=== PATIENT | female | born 1940 | race Caucasian/White ===

== ENCOUNTER → 2017-10-27 09:14 | Outpatient (CLI) | payer MEDICARE, OTHER, SELFPAY ==
[2017-10-27 12:09] LABS: Absolute Lymphocyte Count 1.78 X10^3/ul (0.83-4.51); Absolute Neutrophil Count 2.6 X10^3/uL (2.0-7.7); Basophil# 0.03 X10^3/uL; Basophil% 0.6 % (0-1); Eosinophil# 0.13 X10^3/uL; Eosinophils% 2.5 % (0-5); Hematocrit 36.7 % (37-47); Hemoglobin 11.7 g/dl (12.0-15.0); Lymphocyte # 1.78 X10^3/ul (4.0); Lymphocyte % 33.8 % (19-41); Mean Corp Hgb Conc 31.9 g/gl (32-36); Mean Corpuscular Hgb 29.4 pg (27.0-32.0); Mean Corpuscular Volume 92.2 fL (81-99); Mean Platelet Vol. 10.1 fl (6.2-12.0); Monocyte# 0.76 X10^3/uL; Monocyte% 14.4 % (0-10); Neutrophil # 2.55 X10^3/uL (2.7-7.7); Neutrophil % 48.5 % (47-70); Platelet Count 249 K/mm3 (150-450); RBC Distribution Width SD 43.2 fl (35.1-43.9); Red Blood Count 3.98 M/mm3 (4.2-5.4); White Blood Count 5.3 K/mm3 (4.4-11.0)
[2017-10-27 12:15] LABS: POSITIVE COUNT NO; POSITIVE DIFFERENTIAL NO; POSITIVE MORPHOLOGY NO
[2017-10-27 12:35] LABS: AST(SGOT) 17 U/L (15-37); Alanine Aminotransfer ALT/SGPT 28 U/L (13-56); Albumin, Serum 3.7 g/dL (3.2-5.0); Alkaline Phosphatase 69 U/L (45-117); Anion Gap 8 (5-15); BUN 21 mg/dL (7-18); BUN/Creat Ratio 16.9 RATIO (10-20); Calcium,Total 8.8 mg/dL (8.5-10.1); Chloride 110 mmol/L (98-107); Cholesterol 159 mg/dL (200); Creatinine, Serum 1.24 mg/dL (0.55-1.02); EST Glomerular Filtration Rate 45 mL/min (>60); Est Glom Filt Rate - Afr Amer 54 mL/min (>60); Globulin 3.8 g/dL (2.2-4.2); Glucose 99 mg/dL (74-106); High Density Lipoprotein 46 mg/dL; Potassium 4.7 mmol/L (3.5-5.1); Protein, Total 7.5 g/dL (6.4-8.2); Sodium Level 142 mmol/L (136-145); Triglycerides 163 mg/dL; Very Low Density Lipoprotein 33 mg/dL (5-40)
[2017-10-27 13:00] LABS: Hemoglobin A1c 6.1 % (4.2-6.3)
== END ==
PROVIDERS: Family Provider Family Medicine; PCP Family Medicine; Visit Provider Family Medicine
DX: Z00.00 Encounter for general adult medical examination without abnormal findings (principal); I10 Essential (primary) hypertension; E78.00 Pure hypercholesterolemia, unspecified; R73.01 Impaired fasting glucose
CPT/HCPCS: 36415; 80053; 80061; 83036; 85025

== ENCOUNTER → 2017-12-29 11:05 | Outpatient (CLI) | payer MEDICARE, OTHER, SELFPAY ==
[2017-12-29 12:38] LABS: Protein, Urine (Random) 8.9 mg/dL (<11.9); Protein:Creat Ratio 133 mg/g CRE (0-200)
[2017-12-29 12:39] LABS: Vitamin B12 785 pg/mL (211-911)
[2017-12-29 12:54] LABS: Erythrocyte Sedimentation Rate 13 mm/hr (0-30)
[2017-12-29 13:10] LABS: Anion Gap 6 (5-15); BUN 29 mg/dL (7-18); BUN/Creat Ratio 24.4 RATIO (10-20); CRP < 2.90 mg/L (0.0-3.0); Calcium,Total 8.8 mg/dL (8.5-10.1); Chloride 108 mmol/L (98-107); Creatinine, Serum 1.19 mg/dL (0.55-1.02); EST Glomerular Filtration Rate 47 mL/min (>60); Est Glom Filt Rate - Afr Amer 57 mL/min (>60); Ferritin 22 ng/mL (8-252); Glucose 89 mg/dL (74-106); Iron 55 ug/dL (50-170); Iron Binding Capacity,Total 323 ug/dL (250-450); Potassium 4.6 mmol/L (3.5-5.1); Sodium Level 139 mmol/L (136-145)
== END ==
PROVIDERS: Family Provider Family Medicine; PCP Family Medicine; Visit Provider Family Medicine
DX: M32.9 Systemic lupus erythematosus, unspecified (principal); I10 Essential (primary) hypertension; D64.9 Anemia, unspecified; N28.9 Disorder of kidney and ureter, unspecified
CPT/HCPCS: 36415; 80048; 82570; 82607; 82728; 82746; 83540; 83550; 84156; 85652; 86140

== ENCOUNTER → 2018-11-12 | Outpatient (CLI) | payer MEDICARE, OTHER, SELFPAY ==
[2018-11-12 12:43] LABS: Absolute Lymphocyte Count 1.19 X10^3/ul (0.83-4.51); Absolute Neutrophil Count 1.8 X10^3/uL (2.0-7.7); Basophil# 0.02 X10^3/uL; Basophil% 0.6 % (0-1); Eosinophil# 0.07 X10^3/uL; Hematocrit 37.3 % (37-47); Hemoglobin 11.8 g/dl (12.0-15.0); Lymphocyte # 1.19 X10^3/ul (4.0); Lymphocyte % 34.2 % (19-41); Mean Corp Hgb Conc 31.6 g/gl (32-36); Mean Corpuscular Hgb 28.4 pg (27.0-32.0); Mean Corpuscular Volume 89.9 fL (81-99); Mean Platelet Vol. 10.2 fl (6.2-12.0); Monocyte# 0.42 X10^3/uL; Monocyte% 12.1 % (0-10); Neutrophil # 1.78 X10^3/uL (2.7-7.7); Neutrophil % 51.1 % (47-70); Platelet Count 243 K/mm3 (150-450); RBC Distribution Width CV 13.3 % (11.6-14.6); RBC Distribution Width SD 43.3 fl (35.1-43.9); Red Blood Count 4.15 M/mm3 (4.2-5.4); White Blood Count 3.5 K/mm3 (4.4-11.0)
[2018-11-12 12:44] LABS: POSITIVE COUNT NO; POSITIVE DIFFERENTIAL NO; POSITIVE MORPHOLOGY NO
[2018-11-12 13:13] LABS: ALB/GLOB Ratio 0.9 RATIO (0.9-2.4); AST(SGOT) 30 U/L (15-37); Alanine Aminotransfer ALT/SGPT 42 U/L (13-56); Albumin, Serum 3.7 g/dL (3.2-5.0); Alkaline Phosphatase 68 U/L (45-117); Anion Gap 8 (5-15); BUN 18 mg/dL (7-18); BUN/Creat Ratio 15.4 RATIO (10-20); Chloride 110 mmol/L (98-107); Cholesterol 121 mg/dL (200); Creatinine, Serum 1.17 mg/dL (0.55-1.02); EST Glomerular Filtration Rate 48 mL/min (>60); Est Glom Filt Rate - Afr Amer 58 mL/min (>60); Globulin 3.9 g/dL (2.2-4.2); Glucose 90 mg/dL (74-106); High Density Lipoprotein 48 mg/dL; Potassium 4.3 mmol/L (3.5-5.1); Protein, Total 7.6 g/dL (6.4-8.2); Sodium Level 142 mmol/L (136-145); Triglycerides 98 mg/dL; Very Low Density Lipoprotein 20 mg/dL (5-40)
== END | disposition home or self-care (01) ==
LOC: BFHLAB 10:58
PROVIDERS: Family Provider Family Medicine; PCP Family Medicine; Visit Provider Family Medicine
DX: E78.00 Pure hypercholesterolemia, unspecified (principal); R73.01 Impaired fasting glucose; Z51.81 Encounter for therapeutic drug level monitoring
CPT/HCPCS: 36415; 80053; 80061; 83036; 85025

== ENCOUNTER 2020-03-10 05:51 | Day surgery (SDC) | payer MEDICARE, OTHER, SELFPAY ==
--- NOTE | 2020-03-03 09:15 | EKG12_ITS ---
Test Reason : PRE OP Blood Pressure : / mmHG Vent. Rate : 059 BPM Atrial Rate : 059 BPM P-R Int : 140 ms QRS Dur : 074 ms QT Int : 408 ms P-R-T Axes : 060 040 055 degrees QTc Int : 403 ms Sinus bradycardia Otherwise normal ECG Confirmed by KIKI SCHNEIDER, TWAN ([id number]), medical editor NADJA HAILE ([id number]) on 03/06/2020 1:23:03 PM Referred By: Marek Hernandez Confirmed By:TWAN SWANSON MD
[2020-03-03 10:24] LABS: Anion Gap 6 (5-15); BUN 23 mg/dL (7-18); BUN/Creat Ratio 16.7 RATIO (10-20); Calcium,Total 9.5 mg/dL (8.5-10.1); Chloride 107 mmol/L (98-107); Creatinine, Serum 1.38 mg/dL (0.55-1.02); EST Glomerular Filtration Rate 39 mL/min (>60); Est Glom Filt Rate - Afr Amer 47 mL/min (>60); Glucose 98 mg/dL (74-106); Potassium 4.6 mmol/L (3.5-5.1); Sodium Level 139 mmol/L (136-145)
--- NOTE | 2020-03-10 | LYMN_PTH ---
PATIENT: ARIANA YEH LOC: [facility] – [place] U#:[id number] AGE/SX: 79/F ROOM: RE03/10/[address]: Dr. Marek Hernandez MD : 1940 BED: DIS: 03/10/2020 SPEC #: [id number] RECD: 03/10/20 08:10 STATUS: DIANDRA REQ #: [id number] VIKY: 03/10/20 00:[address]: Marek Hernandez DEPT: SURGICAL PATHOLOGY RECD BY: Santa Mercado ENTERED: 03/10/20 09:19 SP TYPE: LYMPH NODE OTHR DR: MD Dr. Zoya Cheek DO Tissues: LYMPH NODE BIOPSY Procedures: Frozen Section (charge) Surgery Specimen Level IV HEADER OPERATION: Biopsy excision lymph node, open deep cervical node PRE-OP DIAGNOSIS: Cervical lymphadenopathy TISSUE SUBMITTED: Left cervical lymph node, frozen section FROZEN SECTION DIAGNOSIS Left cervical lymph node, biopsy: Lymph node tissue, negative for carcinoma. A section is taken for flow cytometry studies. SJ:luis 03/10/20 MICROSCOPIC DIAGNOSIS Left cervical lymph node, biopsy: Polytypic lymphoid population consistent with reactive lymph node. AM:luis 03/14/20 COMMENT Immunohistochemistry ([id number]) supports the above diagnosis. Flow cytometry analysis of the tissue reveals no evidence of B-cell or T-cell lymphoproliferative disorder. The flow cytometry study from [facility] is viewable in the patient's EMR. MICROSCOPIC DESCRIPTION Slides are reviewed. GROSS DESCRIPTION Received fresh for frozen section diagnosis labeled with the patient's name is a specimen designated left cervical lymph node. The specimen consists of an ovoid piece of martinez-pink nodule measuring 1.5 x 1 x 0.5 cm. A section is submitted for flow cytometry study. The entire specimen is submitted for frozen section diagnosis in one cassette. / TANO:luis 03/10/20 TC:5 CPT: 63173, 13162
--- NOTE | 2020-03-10 | IMM_PTH ---
PATIENT: ARIANA YEH LOC: [facility] – [place] U#:[id number] AGE/SX: 79/F ROOM: RE03/10/[address]: Dr. Marek Hernandez MD : 1940 BED: DIS: 03/10/2020 SPEC #: [id number] RECD: 03/13/20 10:38 STATUS: DIANDRA REQ #: [id number] VIKY: 03/10/20 00:[address]: Marek Hernandez DEPT: IMMUNOHISTOCHEMISTRY RECD BY: Santa Mercado ENTERED: 03/13/20 10:41 SP TYPE: IMMUNO OTHR DR: MD Dr. Zoya Cheek, Tissues: LYMPH NODE BIOPSY Procedures: BCL-2 (add) BCL-6 (add) CD10 (add) CD138 (add) CD15 (add) CD20 (add) CD23 (add) CD3 (add) CD30 (add) CD43 (add) CD45 (add) CD5 (add) CD79A (add) CYCLIN (add) KAPPA (add) KI-67 (add) LAMBDA (add) MUM1 (add) C-MYC (add) Pankeratin (initial) PHYSICIAN & INSTITUTION [place] [id number] SPECIMEN INFORMATION: Tissue Source: Left cervical lymph node Clinical Info: Cervical lymphadenopathy Specimen Number: [id number] CPT code: 86690, 13900 x19 METHODOLOGY: Deparaffinized sections of prefer/formalin-fixed tissue or PAP/DQ stained slides are incubated with monoclonal/polyclonal antibodies/oligonucleotide probes. Localization is made via biotin free immunoperoxidase method. Appropriate controls are performed and reacted as expected. Results on target cell population are indicated in the following table: RESULTS: ANTIBODY / CLONE RESULT AE1-3 (AE1/AE3/PCK26) negative CD3 (PS1) positive CD5 (SP10) positive CD10 (56C6) negative CD15 (MMA) negative CD20 (L26) positive CD23 (1B12) negative CD30 (Wilman-H2) negative CD43 (L60) positive CD45 (RP2/18) positive CD79a (11E3) positive CD138 (B-A38) negative BCL-2 (bcl-2/100/D5) negative BCL-6 (IG103F/A8) negative Cyclin D1/BCL-1 (SP4) negative [place] (polyclonal) negative Lambda (polyclonal) negative MUM1 (MRQ-43) negative C-MYC (Y69) negative Ki-67 (30-9) negative These tests were developed and their performance characteristics determined by [facility]. They may not have been cleared or approved by the U.S. Food and Drug Administration. The FDA has determined that such clearance or approval is not necessary. The above immunohistochemical/dualISH markers are ordered and reviewed by the Pathologist. INTERPRETATION: Left cervical lymph node, biopsy: Polytypic lymphoid tissue consistent with reactive lymph node. AM:luis 03/14/20
[2020-03-10 06:23] VITALS: BP 130/69; PULSE 73; RESP 16; TEMP 36.5; O2SAT 97; BMI 25.0
[2020-03-10] MEDS: Lactated Ringers 1,000 ML 75 ML IV (06:41)
--- NOTE | 2020-03-10 08:22 | DCINST_ITS ---
You will use the following diet at home:: No restrictions Discharge Activity: Return to Normal Activity Call your doctor if your incision/area has: Continuous Slow Oozing, Increased Pain/ Swelling, Increased Redness, Foul Smelling Discharge Call your doctor if you observe: Fever of 101 or Higher, Uncontrolled pain Allergies/Adverse Reactions: Allergies codeine Allergy (Verified 03/02/20 15:01) Nausea/Vom/Diarrhea Penicillins [PCN] Allergy (Verified 03/02/20 15:01) Rash Sulfa (Sulfonamide Antibiotics) Allergy (Verified 03/02/20 15:01) Hives Medications to take at Discharge Aspirin E.C. [Ecotrin] 325 mg PO BID 03/02/20 Daily Defense 2 tab PO BID 03/02/20 Gabapentin [Neurontin] 300 mg PO TID 03/02/20 Larginine 1 tab PO BID 03/02/20 Lisinopril [Zestril] 10 mg PO DAILY 03/02/20 RX: Cranberry 500 mg PO BID 03/02/20 RX: Meloxicam 15 mg PO DAILY 03/02/20 Rosuvastatin Calcium [Crestor] 20 mg PO QHS 03/02/20 Primary Care Physician: Zoya Cancino DO [Primary Care Provider] - Test Results: Test results from this visit will be discussed in further detail at your follow- up appointment, if applicable. Please Follow Up With: Marek Hernandez MD When: 2 weeks
--- NOTE | 2020-03-10 08:23 | OP.PCM_ITS ---
Problem List (1) Lymphadenopathy of head and neck region Status: Chronic Report of Operation Date of Procedure: 03/10/20 Pre-Operative Diagnosis: Left cervical lymphadenopathy Post-Operative Diagnosis: Same Surgery/Procedure Performed:: Left deep cervical lymph node biopsy Description of Surgical Findings:: Kellie is a 79-year-old female with a persistently enlarged left submandibular ly mph node followed by serial ultrasound which showed progressive enlargement but generally benign features. Given her age and persistence suspicion for malignancy due to its large size was raised and open biopsy for definitive evaluation and specimen for pathologic testing was offered and she was agreeable to proceed. The risks of coronavirus exposure in this time period was discussed and she was agreeable to accept this risk in exchange for identification of any possible underlying malignancy. The risks, alternatives, potential complications, and benefits were discussed at length and any questions answered to the patient and/or caregiver's satisfaction. Witnessed informed consent was obtained in the office, and the patient and/or caregiver was agreeable to proceed. Procedure went as follows: The patient was identified in preoperative holding and brought to the operating room, placed under general anesthesia and intubated. When appropriate anesthesia was obtained, the left neck was prepped and draped in usual sterile fashion. The planned incision site was then injected with 1% lidocaine with 100,000 epinephrine for a total of 7 mL 2 fingerbreadths below the angle of the mandible to avoid the marginal mandibular branch of the facial nerve. After allowing for vasoconstriction, a skin incision 2 fingerbreadths below the angle of the mandible was then created to 15 blade scalpel through the skin subcutaneous tissues and platysma. Dissection was then carried out along the sternocleidomastoid where overlying the vascular sheath was noted to be a low posterior lying submandibular gland. This was soft and benign in appearance. Dissection was then carried out to the jugulodigastric lymph node which was noted approximately 0.8 x 1.4 cm in size and this was then removed for pathologic evaluation. Manual palpation revealed no other suspicious lymphadenopathy to corroborate the ultrasound findings and concern was raised for the possible misinterpretation of the low-lying submandibular gland as a enlarged lymph node. Given the soft and normal appearance of this gland no resection was undertaken. The node was then sent for pathologic specimen. The wound was then closed deeply with interrupted 3-0 Vicryl sutures closing the space and reapproximating the platysma and subcutaneous tissues. A running 5-0 Monocryl subcuticular stitch was then placed to close the skin followed by Cavilon and Steri-Strips. Mild weakness of the depressor function of the left corner of mouth was noted postop which was felt to be secondary to infiltration of anesthetic is a surgical incision remained low and deep to the nerve throughout the procedure and return to normal function as anticipated. The patient was then returned to anesthesia, was revived and extubated without complication having tolerated the procedure well. Type of Anesthesia:: General Anesthesiologist: Andrew Mendez Special Medications: none Specimen's removed: left deep cervical lymph node Drains: none Estimated Blood Loss (mL): 0 mL Fluids Replaced: 600 mL Grafts/Implants Used: none - Complications none - Admit VTE Documentation VTE Present on Admission: No VTE Mechan Device Prophylaxis: SCD's VTE Pharm Prophylaxis ordered?: No
[2020-03-10 08:30] VITALS: BP 119/53; BP 130/69; PULSE 69; RESP 16; TEMP 36.7; O2SAT 94
[2020-03-10 08:35] VITALS: BP 110/65; BP 130/69; PULSE 72; RESP 16; O2SAT 97
[2020-03-10 08:40] VITALS: BP 124/56; BP 130/69; PULSE 76; RESP 16; O2SAT 99
[2020-03-10 08:45] VITALS: BP 117/49; BP 130/69; PULSE 61; RESP 16; TEMP 36.6; O2SAT 99
[2020-03-10 09:26] VITALS: BP 130/69
== END 2020-03-10 09:48 | disposition home or self-care (01) ==
LOC: SDC 05:52 → AC 05:53
PROVIDERS: Anesthesiology; PCP Family Medicine; Referring Provider Otolaryngology; Visit Provider Otolaryngology
PROC: (CPT 38500; principal; 2020-03-10 07:15)
DX: R59.0 Localized enlarged lymph nodes (principal); Z11.59 Encounter for screening for other viral diseases; I10 Essential (primary) hypertension; G25.81 Restless legs syndrome; E78.00 Pure hypercholesterolemia, unspecified; Z79.899 Other long term (current) drug therapy; Z87.891 Personal history of nicotine dependence
CPT/HCPCS: 00320; 38510; 36415; 80048; 87635; 88305; 88331; 88341; 88342; 93005; C9803; J7120; J2405; U0003

== ENCOUNTER → 2021-11-14 | Outpatient (CLI) | payer MEDICARE, OTHER, SELFPAY ==
--- NOTE | 2021-11-14 12:51 | STEWCON_ITS ---
Reason For Study: ABN ECG STRESS TEST Stress Results Protocol: Rajat Protocol WITH DEFINITY Maximum Predicted HR: 140 bpm Target HR: 119 bpm % Maximum Predicted HR: 95 % DurationHeart Rate Stage (mm:ss) (bpm) BP Comment BASELINE 59 140/722 CC DEFINITY FOR ENTIRE TEST STAGE 1 3:00 101 182/54 STAGE 2 3:00 133 188/60 RECOVERY 68 150/82NO CHEST PAIN DURING TEST Stress Duration: 6:00 mm:ss Maximum Stress HR: 133 bpm Baseline Echocardiogram Findings Stress Echo Wall motion Data Resting WM Intermediate WM Stress WM ECHO/Stress Test Echo W/Contrast Interpretation Summary Exercise stress echo 81-year-old lady with a history of chest pain. Stress protocol: Resting KG demonstrates normal sinus rhythm with a rate of 62 bpm normal interv als are noted resting blood pressure is 152/72 mmHg. The patient exercised according to regular Rajat protocol for total duration of 6 minutes the maximum heart rate attained was 1 and 37 bpm which wa s 97% of max impact at heart rate the maximum workload was 7 metabolic equivalents. At rest there w ere no ST or T wave changes noted suggest ischemia and at peak exercise upsloping ST changes were n oted with did not meet the criteria for ischemia. No clinical angina was noted the test was termi nated due to leg fatigue. The peak blood pressure was 188/60 mmHg. Stress echocardiogram. Resting echocardiographic images were obtained with Definity enhancement. There was thickening of all pulliam and reduction of left ventricular cavity size. The resting ejection f raction was 55% with a peak ejection fraction of 65%. No ischemia was noted. Conclusion: Normal exercise stress echo with no evidence of ischemia at a moderate workload . Ordering Physician: ERIKA^DAYLIN Referring Physician: DAYLIN JAMES Performed By: Sangeeta Schultz, RAFFI, RVT
== END | disposition home or self-care (01) ==
LOC: CVS 12:46
PROVIDERS: PCP Nurse Practitioner Adult Health
DX: R94.39 Abnormal result of other cardiovascular function study (principal); R94.31 Abnormal electrocardiogram [ECG] [EKG]
CPT/HCPCS: 93017; 93350; Q9957; A4216; C8928

== ENCOUNTER → 2022-12-24 | Outpatient (CLI) | payer MEDICARE, OTHER, SELFPAY ==
[2022-12-24 11:24] LABS: Mucous, Urine 0 SEEN /hpf (<or=2+)
[2022-12-24 12:06] LABS: Color, Urine Yellow (Yellow); Glucose, Dipstick Normal (Normal); Ketone-Dipstick Negative (Negative); Leukocyte Esterase-Dipstick 500 /ul (Negative); Nitrite-Dipstick Positive (Negative); Occult Blood-Urine Negative /ul (Negative); Protein-Dipstick Negative (Negative); Specific Gravity, Urine 1.015 (1.002-1.030); Urine Bilirubin Dipstick Negative (Negative); Urine Clarity Clear (Clear); Urine Urobilinogen Normal (Normal)
[2022-12-24 12:21] LABS: White Blood Cells 10-25 SEEN /hpf (0-5)
[2022-12-24 12:22] LABS: Bacteria RARE /hpf (None Seen); Red Blood Cells-Urine 0-5 SEEN /hpf (0-5); Squamous Epithelial Cells - UA 0-5 SEEN /hpf (5-10)
[2022-12-24 16:47] LABS: Albumin, Serum 3.8 g/dL (3.2-5.0); BUN 33 mg/dL (7-18); BUN/Creat Ratio 21.6 RATIO (10-20); Calcium,Total 9.4 mg/dL (8.5-10.1); Chloride 107 mmol/L (98-107); Creatinine, Serum 1.53 mg/dL (0.55-1.02); EST Glomerular Filtration Rate 35 mL/min (>60); Est Glom Filt Rate - Afr Amer 42 mL/min (>60); Glucose 89 mg/dL (74-106); Phosphorus 4.6 mg/dL (2.5-4.9); Potassium 4.6 mmol/L (3.5-5.1); Rheumatoid Factor < 10.0 IU/mL (<15); Sodium Level 136 mmol/L (136-145)
== END | disposition home or self-care (01) ==
LOC: POLAB3 11:22
PROVIDERS: PCP Nurse Practitioner Adult Health; Visit Provider Family Medicine Geriatric Medicine
DX: N17.9 Acute kidney failure, unspecified (principal); M32.9 Systemic lupus erythematosus, unspecified; M06.9 Rheumatoid arthritis, unspecified
CPT/HCPCS: 36415; 80069; 81001; 86038; 86431

== ENCOUNTER 2023-03-21 05:59 | Day surgery (SDC) | payer MEDICARE, OTHER, SELFPAY ==
[2023-03-21 06:42] VITALS: BP 144/61; PULSE 72; RESP 16; TEMP 36.7; O2SAT 99; BMI 26.2
[2023-03-21] MEDS: Lactated Ringers 1,000 ML 15 ML IV (06:45)
--- NOTE | 2023-03-21 07:16 | PCM.HP.BLA ---
History and Physical Date of Admission: 03/21/23 Pt is examined and there are no changes to the H&P and medical clearance of 03/04/23. Pt with upper eyelid dermatochalasis obstructing vision. Assessment & Plan Assessment/Plan (1) Vision decreased: (2) Dermatochalasis of both eyelids: PLAN: Plan Pt for bilateral upper blepharoplasty.
[2023-03-21] MEDS: Clindamycin 900 MG/50 ML BAG 75 MG IV (07:35)
[2023-03-21] MEDS: Povidone Iodine 30 ML Opthalmic Sol 1 DRP (08:00)
[2023-03-21] MEDS: Tetracaine 0.5% Ophthalmic Bottle OPHTHALMIC (08:00)
[2023-03-21] MEDS: Lidocaine 1% /Epi 1:100 (50ml) 50 ML VIAL (08:09)
[2023-03-21] MEDS: Epinephrine (1 mg/ml) 1 MG/ML VIAL (08:09)
[2023-03-21] MEDS: Erythromycin Base 1 OPTH.TUBE 1 APPLIC OPHTHALMIC (08:09)
--- NOTE | 2023-03-21 09:12 | EX.PCM.DISCH ---
Discharge Instructions Diet Discharge Diet: No restrictions Activity Additional Activity Instructions:: keep back elevated to decrease swelling and bruising. Dressing / Incision Additional Dressing/Incision Instructions:: Cold compresses continuously today. Follow Up Care Please Follow Up With: Saida Velazquez MD When: as directed Test Results: Test results from this visit will be discussed in further detail at your follow-up appointment, if applicable. Discharge Plan Admission Attending Provider: Saida Velazquez Primary Care Provider: Tanya Espinoza NP Discharge Orders/Prescriptions Prescriptions: No Action aspirin 81 mg tablet,delayed release (DR/EC) 81 mg PO DAILY metoprolol tartrate 25 mg tablet 25 mg PO DAILY phenazopyridine [Pyridium] 200 mg tablet 200 mg PO QPC PRN (Reason: UTI) nitrofurantoin 100 mg capsule 100 mg PO QHS PRN (Reason: UTI) Rx Instructions: must administer with a meal/food biotin 1,000 mcg tablet,chewable 1,000 mcg PO DAILY arginine (L-arginine) 500 mg capsule 500 mg PO BID cephalexin 500 mg capsule 500 mg PO BID Qty: 10 0RF Patient Comments: WILL START AFTER SURGERY gabapentin 300 MG capsule 300 mg PO TID cranberry 500 MG capsule 500 mg PO BID rosuvastatin 20 MG tablet 20 mg PO QHS acetaminophen 500 MG tablet 500 mg PO Q4H PRN PRN (Reason: Pain Score 1-5/10) 0RF lisinopril 10 mg tablet 20 mg PO DAILY Referrals / Follow Up: Tanya Espinoza NP, CLIENT EXPERIENCE MANAGER-C [Primary Care Provider] - Disposition Disposition (needs filled in before D/C Order can be placed): Home, Self Care
--- NOTE | 2023-03-21 09:14 | PCM.OPRPT ---
Report of Operation Date of Procedure: 03/21/23 Pre-Operative Diagnosis: Bilateral dermatochalasis Surgery/Procedure Performed:: Bilateral blepharoplasty Surgeon: Saida Velazquez retail operations specialist: ALONDRA VÁZQUEZhome care aide Type of Anesthesia: General Estimated Blood Loss (mL): minimal Description of Procedure: The patient presents with bilateral upper eyelid dermatochalasis. The procedure of upper blepharoplasty have been reviewed with her including the expected pre-, intra, and postoperative course. Informed consent had been obtained. She is marked in the preop holding area prior to surgery. The patient was brought to the operating room and placed under general anesthesia in the supine position. Care is taken to pad all pressure points and apply sequential compression stockings. The face and eyelids are prepped and draped in the usual sterile fashion. Tetracaine drops were placed in the eyes prior to placing corneal ly lubricated with erythromycin ophthalmic ointment. We initially began with incising the premarked skin excision area. The skin is then taken off as a single layer and passed off the operative field. Meticulous hemostasis is assured with bipolar cautery. A strip of orbicularis oculi is then removed within the incision area. Again hemostasis is assured. The incisions then tacked together with fast-absorbing gut. Cool compresses are placed on the eye. We then directed our attention to the opposite side where an identical procedure was performed. Skin edges are then approximated using a running subcuticular Prolene suture. The sutures ankle at the congregational and glabella using Steri-Strips and Mastisol. She tolerated the procedure well was taken to the recovery area in an awake and stable condition. Needle and sponge counts are correct. Complications none Admit VTE Documentation VTE Mechan Device Prophylaxis: SCD's
[2023-03-21 09:15] VITALS: BP 115/93; BP 144/61; PULSE 75; RESP 16; TEMP 36.8; O2SAT 97
[2023-03-21 09:30] VITALS: BP 144/61; BP 97/42; PULSE 72; RESP 16; O2SAT 99
[2023-03-21 09:45] VITALS: BP 101/50; BP 144/61; PULSE 75; RESP 16; O2SAT 100
[2023-03-21 10:08] VITALS: BP 114/56; BP 144/61; PULSE 64; RESP 16; TEMP 36.7; O2SAT 98
[2023-03-21 11:56] VITALS: BP 144/61; BP 148/65; PULSE 66; RESP 14; TEMP 36.1; O2SAT 99
== END 2023-03-21 12:07 | disposition home or self-care (01) ==
LOC: SDC 06:03 → AC 06:05
PROVIDERS: PCP Nurse Practitioner Adult Health; Referring Provider Plastic Surgery; Visit Provider Plastic Surgery
PROC: (CPT 15823; principal; 2023-03-21 07:20)
DX: H02.831 Dermatochalasis of right upper eyelid (principal); N18.32 Chronic kidney disease, stage 3b; H02.834 Dermatochalasis of left upper eyelid; I12.9 Hypertensive chronic kidney disease with stage 1 through stage 4 chronic kidney disease, or unspecified chronic kidney disease; E78.00 Pure hypercholesterolemia, unspecified; L93.2 Other local lupus erythematosus; Z79.899 Other long term (current) drug therapy; Z79.82 Long term (current) use of aspirin; Z87.891 Personal history of nicotine dependence
CPT/HCPCS: 15823; 00103; J7120

== ENCOUNTER → 2023-12-30 | Outpatient (CLI) | payer MEDICARE, OTHER, SELFPAY ==
[2023-12-30 12:02] LABS: Albumin, Serum 3.5 g/dL (3.2-5.0); BUN 29 mg/dL (7-18); BUN/Creat Ratio 21.8 RATIO (10-20); Chloride 107 mmol/L (98-107); Creatinine, Serum 1.33 mg/dL (0.55-1.02); EST Glomerular Filtration Rate 41 mL/min (>60); Est Glom Filt Rate - Afr Amer 49 mL/min (>60); Glucose 88 mg/dL (74-106); Potassium 4.7 mmol/L (3.5-5.1); Sodium Level 137 mmol/L (136-145)
== END | disposition home or self-care (01) ==
LOC: LAB 11:06
PROVIDERS: PCP Nurse Practitioner Adult Health; Referring Provider Internal Medicine Nephrology; Visit Provider Internal Medicine Nephrology
DX: N17.9 Acute kidney failure, unspecified (principal)
CPT/HCPCS: 36415; 80069

== ENCOUNTER → 2024-01-29 | Outpatient (CLI) | payer MEDICARE, OTHER, SELFPAY ==
[2024-01-29 11:53] LABS: Erythrocyte Sedimentation Rate 5 mm/hr (0-30)
[2024-01-29 12:57] LABS: AST(SGOT) 15 U/L (15-37); Alanine Aminotransfer ALT/SGPT 22 U/L (13-56); Albumin, Serum 3.3 g/dL (3.2-5.0); Alkaline Phosphatase 45 U/L (45-117); Anion Gap 9 (5-15); BUN 22 mg/dL (7-18); BUN/Creat Ratio 18.5 RATIO (10-20); CRP < 2.90 mg/L (0.0-3.0); Calcium,Total 8.6 mg/dL (8.5-10.1); Chloride 110 mmol/L (98-107); Creatinine, Serum 1.19 mg/dL (0.55-1.02); EST Glomerular Filtration Rate 46 mL/min (>60); Est Glom Filt Rate - Afr Amer 56 mL/min (>60); Globulin 3.4 g/dL (2.2-4.2); Glucose 91 mg/dL (74-106); LDH 186 U/L (84-246); Potassium 4.7 mmol/L (3.5-5.1); Protein, Total 6.7 g/dL (6.4-8.2); Sodium Level 141 mmol/L (136-145)
[2024-02-03 13:08] LABS: ACCA 5 units (0-90); ALCA 4 units (0-60); AMCA 32 units (0-100); Albumin 3.5 g/dL (2.9-4.4); Alpha-1-Globulins 0.2 g/dL (0.0-0.4); Alpha-2-Globulins 0.8 g/dL (0.4-1.0); Angiotensin Convert Enzyme < 15 U/L (14-82); Anti-Smooth Muscle ABS 6 Units (0-19); Cytoplasmic Ab (C-ANCA) <1:20 titer (Neg:<1:20); Endomysial Antibody IgA Negative (Negative); IMMUNOFIXATION RESULT,S Comment: (.); Immunoglobulin A 69 mg/dL (64-422); Immunoglobulin E 3 IU/mL (6-495); Immunoglobulin G 1005 mg/dL (586-1602); Immunoglobulin M 21 mg/dL (26-217); PROEL- TOTAL PROTEIN 6.3 g/dL (6.0-8.5); Perinuclear Ab (P-ANCA) <1:20 titer (Neg:<1:20); gASCA 11 units (0-50); t-Transglutaminase IgA <2 U/mL (0-3)
[2024-02-05 18:08] LABS: Anti-Centromere B Ab <0.2 AI (0.0-0.9); Anti-Chromatin <0.2 AI (0.0-0.9); Anti-Jo <0.2 AI (0.0-0.9); Anti-Mitochondrial AB <20.0 Units (0.0-20.0); Anti-Scleroderma-70 AB <0.2 AI (0.0-0.9); Anti-dsDNA Ab 1 IU/mL (0-9); Beef <0.10 kU/L (Class 0); Chocolate <0.10 kU/L (Class 0); Codfish <0.10 kU/L (Class 0); Corn <0.10 kU/L (Class 0); Egg, Whole <0.10 kU/L (Class 0); Milk (Cow) <0.10 kU/L (Class 0); Mussels <0.10 kU/L (Class 0); Peanut <0.10 kU/L (Class 0); Pork <0.10 kU/L (Class 0); RNP Ab 0.9 AI (0.0-0.9); SJOGREN'S Anti-SS-A test > 8.0 AI (0.0-0.9); SJOGREN'S Anti-SS-B test < 0.2 AI (0.0-0.9); Salmon <0.10 kU/L (Class 0); Shrimp <0.10 kU/L (Class 0); Smith Ab <0.2 AI (0.0-0.9); Soybean <0.10 kU/L (Class 0); Tuna <0.10 kU/L (Class 0); Wheat <0.10 kU/L (Class 0)
== END | disposition home or self-care (01) ==
LOC: LAB 10:37
PROVIDERS: PCP Nurse Practitioner Adult Health; Referring Provider Student in an Organized Health Care Education/Training Program; Visit Provider Student in an Organized Health Care Education/Training Program
DX: R19.7 Diarrhea, unspecified (principal)
CPT/HCPCS: 36415; 80053; 82164; 82784; 82785; 83516; 83615; 84165; 85652; 86003; 86005; 86036; 86140; 86225; 86235; 86255; 86256; 86334; 86671; 87493

== ENCOUNTER → 2024-02-03 | Outpatient (CLI) | payer MEDICARE, OTHER, SELFPAY ==
[2024-02-06 00:07] LABS: Pancreatic Elastase, Fecal > 800 (>200)
[2024-02-09 19:07] LABS: Calprotectin, Stool 25 ug/g (0-120); Fats, Neutral Normal (.); Fats, Total Increased (.)
[2024-02-12 14:03] LABS: Miscellaneous Lab Procedure E
== END | disposition home or self-care (01) ==
PROVIDERS: PCP Nurse Practitioner Adult Health; Referring Provider Student in an Organized Health Care Education/Training Program; Visit Provider Student in an Organized Health Care Education/Training Program
DX: R19.7 Diarrhea, unspecified (principal); K58.9 Irritable bowel syndrome, unspecified
CPT/HCPCS: 82274; 82653; 82705; 83630; 83993; 87177; 87209; 87329

== ENCOUNTER → 2024-04-27 | Outpatient (CLI) | payer MEDICARE, OTHER, SELFPAY ==
--- NOTE | 2024-04-27 10:16 | MRI_ITS ---
HISTORY: BACK AND LEG PAIN RIGHT SIDED NUMBNESS AND TINGLING. TECHNIQUE: Multiplanar and multisequence MR images of the lumbar spine were obtained without intravenous contrast. 170 images. COMPARISON: XR 03/26/2024. FINDINGS: VERTEBRAE: Vertebral body heights maintained. Mild degenerative bone marrow endplate changes. ALIGNMENT: 4 mm anterolisthesis of L4-5. Mild dextroscoliosis. CONUS: Normal morphology and position of the conus medullaris at T12-L1. INTERVERTEBRAL DISCS: T12-L1: Mild disc bulge without significant central canal stenosis or foraminal narrowing based on the sagittal images. L1-2: Mild disc bulge and moderate facet arthropathy superimposed on a developmentally narrow spinal canal resulting in mild central canal stenosis and bilateral foraminal narrowing. L2-3: Moderate disc bulge and facet arthropathy superimposed on a developmentally narrow spinal canal resulting in bilateral L3 nerve root abutment, severe central canal stenosis, and moderate bilateral foraminal narrowing. L3-4: Moderate disc bulge and facet arthropathy superimposed on a developmentally narrow spinal canal resulting in bilateral L4 nerve root abutment, moderate-severe central canal stenosis, and bilateral foraminal narrowing. L4-5: Moderate disc bulge and facet arthropathy superimposed on a developmentally narrow spinal canal with mild listhesis resulting in markedly severe central canal stenosis, bilateral L5 nerve root impingement, probable bilateral, S1 nerve root impingement, and moderate bilateral foraminal narrowing. L5-S1: Moderate posterior disc protrusion with facet arthropathy resulting in moderate central canal stenosis and bilateral foraminal narrowing. SOFT TISSUES: Mild posterior subcutaneous edema. 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 Degenerative disc disease at the other levels with stenosis as above. Electronically Signed: Eve Cherry MD at 11:22 EST ,
== END | disposition home or self-care (01) ==
LOC: MRI 10:14
PROVIDERS: PCP Nurse Practitioner Adult Health; Referring Provider Orthopaedic Surgery Orthopaedic Surgery of the Spine; Visit Provider Orthopaedic Surgery Orthopaedic Surgery of the Spine
DX: M41.9 Scoliosis, unspecified (principal); M54.16 Radiculopathy, lumbar region
CPT/HCPCS: 72148

== ENCOUNTER → 2024-11-02 | Outpatient (CLI) | payer MEDICARE, SELFPAY ==
--- NOTE | 2024-11-02 14:35 | MRI_ITS ---
PROCEDURE: UPPER EXT JOINT ONLY(ROUTINE) 11/02/2024 REASON FOR EXAM: PAIN, A POP TECHNIQUE: T1, T2, PD, MRI of the right shoulder. Multiplanar and multisequence images were obtained without IV contrast administration. COMPARISON: None FINDINGS: Rotator cuff: There is moderate supraspinatus and infraspinatus muscular atrophy. There is a full-thickness, full width tear of the supraspinatus with 3.2 cm of retraction. There is moderate to severe distal infraspinatus tendinopathy without full-thickness tear or retraction. There is moderate distal subscapularis tendinopathy without full-thickness tear or retraction. The teres minor appears intact. AC joint: There is moderate AC joint hypertrophy without evidence of separation. There is a type 3 acromion with impingement configuration. Labrum: There is a tear of the labrum from the 10 o'clock 2 o'clock position including the biceps tendon anchor. Biceps tendon: The biceps tendon appears avulsed and retracted to the level of the humeral head and neck junction, approximately 5 cm. Effusion: There is a moderate joint effusion which extends in the subacromial subdeltoid bursa. Bone marrow: There is no occult fracture. MRI/Upper Ext Joint Only(Routine) IMPRESSION: There is moderate supraspinatus and infraspinatus muscular atrophy. There is a full-thickness, full width tear of the supraspinatus with 3.2 cm of retraction. There is moderate to severe distal infraspinatus tendinopathy without full-thic kness tear or retraction. There is moderate distal subscapularis tendinopathy without full-thickness tear or retraction. There is moderate AC joint hypertrophy without evidence of separation. There is a type 3 acromion with impingement configuration. There is a tear of the labrum from the 10 o'clock 2 o'clock position including the biceps tendon anchor. The biceps tendon appears avulsed and retracted to the level of the humeral hea d and neck junction, approximately 5 cm. There is a moderate joint effusion which extends in the subacromial subdeltoid bursa. [facility]
== END | disposition home or self-care (01) ==
LOC: MRI 13:49
PROVIDERS: PCP Nurse Practitioner Adult Health; Referring Provider Orthopaedic Surgery Sports Medicine; Visit Provider Orthopaedic Surgery Sports Medicine
DX: M25.511 Pain in right shoulder (principal)
CPT/HCPCS: 73221

== ENCOUNTER → 2025-02-02 | Outpatient (CLI) | payer MEDICARE, SELFPAY ==
--- NOTE | 2025-02-02 14:29 | NEURO_ITS ---
NCS and/or EMG Patient Report Ordering Doctor: Giovanni Foley DATE OF SERVICE: 02/02/25 Kellie presents complaints of pain, numbness and weakness in the right arm since a shoulder injury in September 15, 2024. She reports intermittent neck pain and had a recent MRI. Electrodiagnostic findings: Right median motor nerve demonstrates normal distal latency, amplitude and conduction velocity. Normal right ulnar motor response, including conduction across the elbow. Normal median and ulnar F?waves on the right side. Sensory responses are within normal limits. Needle EMG testing was performed the right upper limb. All muscles tested showed no evidence of denervation with normal motor unit action potentials. Electrodiagnostic impression: This is a normal electrodiagnostic study of the right upper limb. There is no electrodiagnostic evidence of cervical radiculopathy, brachial plexopathy or peripheral neuropathy. Multi Select Codes Neurology Neurology Interp Codes: 59269-31 Musc test done w/n test comp (interp) and 9 5910-26 Nrv cndj test 7-8 studies (interp)
== END | disposition home or self-care (01) ==
LOC: PSN 09:47
PROVIDERS: PCP Nurse Practitioner Adult Health; Referring Provider Student in an Organized Health Care Education/Training Program; Visit Provider Student in an Organized Health Care Education/Training Program
DX: M54.12 Radiculopathy, cervical region (principal); M54.2 Cervicalgia; M19.011 Primary osteoarthritis, right shoulder
CPT/HCPCS: 95886; 95910

== ENCOUNTER → 2025-03-07 | Outpatient (CLI) | payer MEDICARE, SELFPAY ==
[2025-03-07 11:46] LABS: Anion Gap 11 (5-15); BUN 27 mg/dL (4-19); BUN/Creat Ratio 21.6 RATIO (10-20); Calcium,Total 9.6 mg/dL (7.6-11.0); Carbon Dioxide 22.5 mmol/L (21.0-32.0); Chloride 104 mmol/L (98-108); Glucose 74 mg/dL (70-99); Potassium 4.5 mmol/L (3.3-5.1)
== END | disposition home or self-care (01) ==
LOC: LAB 10:33
PROVIDERS: PCP Nurse Practitioner Adult Health; Referring Provider Internal Medicine Nephrology; Visit Provider Internal Medicine Nephrology
DX: E87.5 Hyperkalemia (principal)
CPT/HCPCS: 36415; 80048

== ENCOUNTER → 2025-03-07 | Outpatient (CLI) | payer MEDICARE, SELFPAY ==
--- NOTE | 2025-03-07 09:50 | ECHOL_ITS ---
Reason For Study Reason For Study: ABNORMAL EKG Procedure This was a limited 2D transthoracic echocardiogram. The study was technically difficult. Exam performed in department. Left Ventricle Normal LV size. Left ventricular systolic function is normal. The left ventricular ejection fraction is 60 %. Stage 1 diastolic dysfunction. No regional wall motion abnormalities noted. Right Ventricle Normal RV size. Normal systolic function. Atria Normal left atrium. Normal right atrium. Mitral Valve Normal mitral valve. Tricuspid Valve Normal tricuspid valve. Mild tricuspid valve insufficiency. Aortic Valve Trisinus/trileaflet aortic valve. Pulmonic Valve Normal pulmonic valve. Great Vessels Normal aortic root. The pulmonary artery is normal size. Inferior vena cava collapse with respiration. Pericardium/Pleural No pericardial effusion. MMode/2D Measurements & Calculations LVIDd: 3.7 cm IVSd: 1.0 cm LVOT diam: 1.9 cm LVIDs: 2.2 cm LVPWd: 0.90 cm LVOT area: 2.7 cm2 RVDd: 3.1 cm FS: 40.2 % asc Aorta Diam: 2.9 cm LAV(MOD-bp): 33.2 ml LVAd ap4: 21.4 cm2 LAV(MOD-bp) Indexed: 19.4 ml/m2 LVLd ap4: 7.3 cm LAV(MOD-sp2): 31.9 ml EDV(MOD-sp4): 51.8 ml LAV(MOD-sp4): 34.4 ml EDV(sp4-el): 53.4 ml LVAs ap4: 12.2 cm2 LVLs ap4: 6.0 cm ESV(MOD-sp4): 20.8 ml ESV(sp4-el): 21.0 ml EF(MOD-sp4): 60.0 % EF(sp4-el): 60.6 % LVAd ap2: 15.8 cm2 SV(MOD-sp4): 31.1 ml SV(MOD-sp2): 20.2 ml LVLd ap2: 6.4 cm SI(MOD-sp4): 18.2 ml/m2 SI(MOD-sp2): 11.8 ml/m2 EDV(MOD-sp2): 32.0 ml EDV(sp2-el): 32.7 ml LVAs ap2: 8.8 cm2 LVLs ap2: 5.6 cm ESV(MOD-sp2): 11.8 ml ESV(sp2-el): 11.6 ml EF(MOD-sp2): 63.0 % SV(sp4-el): 32.4 ml Ao sinus diam: 2.8 cm LA A4 area: 14.1 cm2 LA dimension(2D): 4.3 cm RA A4 area: 11.5 cm2 TAPSE: 1.4 cm Time Measurements MV dec time: 0.32 sec Doppler Measurements & Calculations MV E max jhonny: 47.6 cm/sec Lat Peak E' Jhonny: 6.5 cm/sec Med Peak E' Jhonny: 6.5 cm/sec MV A max jhonny: 80.4 cm/sec E/E' lat: 7.3 E/E' med: 7.3 MV E/A: 0.59 Ao V2 max: 147.6 cm/sec LV V1 max: 116.2 cm/sec MV dec slope: 149.4 cm/sec2 Ao max P.7 mmHg LV V1 max P.4 mmHg Ao V2 mean: 98.1 cm/sec LV V1 mean P.5 mmHg Ao mean P.4 mmHg LV V1 mean: 72.5 cm/sec Ao V2 VTI: 31.9 cm LV V1 VTI: 25.0 cm AV (velocity ratio): 0.78 VARINDER(I,D): 2.1 cm2 VARINDER(V,D): 2.1 cm2 SV(LVOT): 67.6 ml TR max jhonny: 196.2 cm/sec TR max P.5 mmHg ECHO/Echo, Limited Study Interpretation Summary Normal LV size. Left ventricular systolic function is normal. The left ventricular ejection fraction is 60 %. Stage 1 diastolic dysfunction. Ordering Physician: BRINDA HARLEY Referring Physician: BRINDA HARLEY Performed By: Kennedi Scott RDCS
== END | disposition home or self-care (01) ==
LOC: CVS 09:44
PROVIDERS: PCP Nurse Practitioner Adult Health
DX: R94.31 Abnormal electrocardiogram [ECG] [EKG] (principal); I10 Essential (primary) hypertension; E78.00 Pure hypercholesterolemia, unspecified; I49.1 Atrial premature depolarization
CPT/HCPCS: 93308

== ENCOUNTER → 2025-04-13 | Outpatient (CLI) | payer MEDICARE, SELFPAY ==
[2025-04-13 13:51] LABS: Albumin, Serum 4.0 g/dL (3.4-4.8); Anion Gap 10 (5-15); BUN 24 mg/dL (4-19); BUN/Creat Ratio 20.7 RATIO (10-20); Calcium,Total 9.2 mg/dL (7.6-11.0); Carbon Dioxide 22.3 mmol/L (21.0-32.0); Chloride 105 mmol/L (98-108); Glucose 149 mg/dL (70-99); Potassium 4.8 mmol/L (3.3-5.1)
== END | disposition home or self-care (01) ==
LOC: LAB 12:07
PROVIDERS: PCP Nurse Practitioner Adult Health; Referring Provider Internal Medicine Nephrology; Visit Provider Internal Medicine Nephrology
DX: N18.32 Chronic kidney disease, stage 3b (principal)
CPT/HCPCS: 36415; 80069